=== PATIENT | female | born 1995 | race Caucasian/White ===

== ENCOUNTER 2017-06-01 15:03 | Emergency (ER) | payer OTHER, MEDICAID, SELFPAY ==
[2017-06-01 15:04] VITALS: BP 150/102; PULSE 99; RESP 18; TEMP 36.8; O2SAT 100; BMI 31.1
--- NOTE | 2017-06-01 15:36 | ED.DCSUM_ITS ---
- ER Visit Summary Date of Service: 06/01/17 Chief Complaint: Right knee pain History of Present Illness: The patient is a 22 F who stood up quickly at work today and felt a pop in her right knee. She denies any direct trauma. She did not fall. No paresthesias. No deformity. Denies any other injuries. Physical Examination: She has mild tenderness on her right knee posteriorly. Skin is intact. No deformity. Mild pain with range of motion but she can still fully flex and extend. She has a strong pulse distally. No other bony tenderness noted. Test Results: Right knee plain films negative for acute fracture. Emergency Department Course and Treatment: For acute fracture. She has no deformity. Normal distal neurovascular examination. Normal distal pulse. Treatment Plan: We will follow-up if not improving. Disposition: Home stable Impression: Initial encounter acute right knee sprain This note was generated with [employer] dictation software. It may contain incorrect words, spelling, and punctuation that were not noted in review of the chart prior to signing ED Disposition - Plan for ED Patient: Chief Complaint: Lower Extremity Injury Instructions: ED Sprain Knee Referrals: [facility] [GROUP OF PHYSICIANS] -
--- NOTE | 2017-06-01 15:45 | RAD_ITS ---
STUDY: X-RAY - RIGHT KNEE REASON FOR EXAM: Female, 22 years old. Traumatic injury of the right knee. TECHNIQUE: 4 view(s) of the knee. COMPARISON: None. FINDINGS: Normal visualized distal femur. Normal visualized proximal tibia and fibula. Normal proximal tibiofibular articulation. Separate ossicle of the anterior tibial tubercle, normal variation. Normal medial femorotibial compartment. Normal lateral femorotibial compartment. Normal patellofemoral articulation. There is no demonstrated joint effusion. The soft tissue structures are unremarkable. RAD/Knee 4 or More Views IMPRESSION: Normal x-ray examination of the knee. Electronically Signed: Marian Burgess MD at 16:25 EDT , Service support ,
--- NOTE | 2017-06-01 16:32 | ED.VISSUMM ---
- ER Visit Summary Date of Service: 06/01/17 Chief Complaint: [] History of Present Illness: The patient is a 22 F [] Physical Examination: [] Test Results: [] Emergency Department Course and Treatment: [] Treatment Plan: [] Disposition: [] Impression: [] This note was generated with [employer] dictation software. It may contain incorrect words, spelling, and punctuation that were not noted in review of the chart prior to signing ED Disposition - Plan for ED Patient: Chief Complaint: Lower Extremity Injury Instructions: ED Sprain Knee [facility]: [facility] [GROUP OF PHYSICIANS] -
[2017-06-01 16:57] VITALS: BP 156/77; PULSE 94; RESP 14; O2SAT 97
== END 2017-06-01 16:58 | disposition home or self-care (01) ==
PROVIDERS: Emergency Provider Emergency Medicine
DX: S83.91XA Sprain of unspecified site of right knee, initial encounter (principal); X58.XXXA Exposure to other specified factors, initial encounter; Y93.9 Activity, unspecified; Y92.9 Unspecified place or not applicable
CPT/HCPCS: 73564; 99282